=== PATIENT | female | born 1995 | race Caucasian/White ===

== ENCOUNTER 2017-01-12 16:16 | Emergency (ER) | payer BC ==
--- NOTE | 2017-01-15 08:15 | ER ---
ADMIT: 01/12/2017 RM/LOC: ER [facility] MR#: [id number] [address] [id number] DIANE GRANT [address] [place] [id number] Emergency Room Report SEX: F AGE: 21 : 1995 DATE: 01/12/2017 TIME: 1616 hours. Please refer to my T-sheet for complete H and P. HISTORY OF PRESENT ILLNESS: Briefly, the patient is a 21-year-old that Connie was mowing the lawn and went did laundry and her back has been hurting her ever since. It hurts so bad, she had to miss work. PHYSICAL EXAMINATION: VITAL SIGNS: Stable. HEENT: Grossly normal. ABDOMEN: Soft. BACK: Tenderness in the lumbar region. No neurological findings distally. EMERGENCY DEPARTMENT COURSE: I gave her prednisone 40 p.o., Flexeril 10 p.o., and Wyatt 2 p.o. She was ready for discharge, had a ride. ASSESSMENT: Acute lumbago/low back pain. PLAN: Massage, rest, ice. Return if worse. Follow up with Alvaro Donahue. Flexeril 10 mg, I gave her 15. Wyatt 5 mg, I gave her 15. Prednisone 40 a day for 4 more days. Marcus Briggs MD/ anjel JOB #: [id number] CC: Marcus Briggs MD, Attending Physician Terry Troy MD, Family Physician
[2017-04-19] MEDS ORDERED: HYDROCODON-ACE1 EAC4 PO (14:58)
== END 2017-01-12 16:50 | disposition home or self-care (01) ==
LOC: ER 16:16
DX: M54.5 Low back pain (principal); F32.9 Major depressive disorder, single episode, unspecified; Z90.49 Acquired absence of other specified parts of digestive tract; Z79.899 Other long term (current) drug therapy